=== PATIENT | female | born 1990 | race Caucasian/White ===

== ENCOUNTER 2021-11-20 12:29 | Emergency (ER) | payer OTHER, SELFPAY ==
--- NOTE | ~2021-11-20 | US_ITS ---
EXAMINATION: US OB <= 14 weeks fetus DATE: 11/20/2021 16:44 INDICATION: Abdominal pain during first trimester of TECHNIQUE: Real-time pelvic ultrasound utilizing transabdominal probe was performed. The chad bennett radiologist was not present for the study. COMPARISON: None. FINDINGS: The uterus measures 10.4 x 7.7 x 5.9 cm. There is an intrauterine gestational sac. A yolk sac and fe aydee pole are identified. The crown rump length measures 1.9 cm, which correlates with an estimated ge stational age of 8 weeks and 3 days. heart motion is identified measuring 178 beats per minute (bpm) by M-mode Doppler. 1.8 x 1.4 x 1.1 cm hypoechoic likely subchorionic hematoma along the left si de of the gestational sac. The right ovary measures 3.2 x 2.8 x 1.6 cm. Massive flow with arterial waveforms identified in the r ight ovary. The left ovary is not visualized. There is no free fluid in the pelvis. IMPRESSION: 1. Single living fetus with heart rate of 178 bpm. 2. Gestational age by ultrasound of 8 weeks 3 day(s) +/- 5 day(s) with ultrasound estimated date of delivery (CONNIE) of 06/29/2022. 3. Small subchorionic hematoma. Reviewed, dictated and finalized at location H. [facility] IMPRESSION: 1. Single living fetus with heart rate of 178 bpm. 2. Gestational age by ultrasound of 8 weeks 3 day(s) +/- 5 day(s) with ultraso und estimated date of delivery (CONNIE) of 06/29/2022. 3. Small subchorionic hematoma.
[2021-11-20 12:45] VITALS: BP 107/56; PULSE 95; RESP 16; TEMP 36.9; O2SAT 97
--- NOTE | 2021-11-20 15:43 | ED.GENADULT ---
HPI - General Adult General Chief complaint: Abdominal Pain Stated complaint: abd pain, 9wks preg Time Seen by Provider: 11/20/21 14:05 Source: patient Mode of arrival: ambulatory Limitations: no limitations History of Present Illness HPI narrative: Patient presents for evaluation of abdominal pain. She indicates she is currently , about 9 weeks gestation. She took a home test on 09/21 that was positive. She had a repeat test at [facility] shortly thereafter which was positive. She has not had an ultrasound during this . . She states she is establishing care with Dr Odonnell but has not seen her yet. She states shortly after her positive test she began having left sided abdominal pain. Pain has been intermittent, sharp occurring on several consecutive days and then resolving. At worst pain was 7/10 in severity. She indicates she woke from sleep this morning around 0200 with a throbbing headache and pain in the right side of the abdomen/flank. Pain is a similar sensation that previously experienced on the left, sharp. She states that certain movements make her pain worse. She has experienced nausea frequently throughout this from weeks 6-9, although she does not currently have any nausea. She denies any urinary symptoms, vaginal bleeding/discharge. Her last bowel movement was four days ago and normal bowel pattern is once every other day. She thinks she is dehydrated . Her last delivery was emergency c section. She states she was told she was high risk as she had gestation diabetes. No other abdominal surgeries historically. Blood type unknown. Related Data Allergies Allergy/AdvReac Type Severity Reaction Status Date / Time No Known Allergies Allergy Verified 11/20/21 14:21 Review of Systems Review of Systems: CONSTITUTIONAL: Reports chills. Denies fever or sweats. EYES: Denies visual changes, redness, or discharge. ENT: Denies rhinorrhea, congestion, sore throat, or otalgia. CARDIOVASCULAR: Denies chest pain, palpitations, or edema. RESPIRATORY: Denies cough or dyspnea. GASTROINTESTINAL: Reports abdominal pain. Reports recent nausea, none currently. Reports decreased frequency of bowel movement. Denies vomiting and diarrhea. GENITOURINARY: Denies dysuria or hematuria. SKIN: Denies rash or itching. MUSCULOSKELETAL: Reports right lower back pain. Reports generalized body aches NEUROLOGIC:Reports headache. Denies numbness, dizziness, or weakness. PSYCHIATRIC: Denies anxiety or depression. [facility] Past Medical History Medical History (Updated 11/20/21 @ 19:17 by FLORY Duron, ) Gestational diabetes Surgical History Surgical History History of delivery Family History Family History Mother No pertinent past medical history Social History Social History Substance use: never Living arrangements: with family Gender identity (if verbalized by the patient): Female Sexual Orientation (if Verbalized by the Patient): Straight or Heterosexual Spiritual care concerns: No Exam Narrative: GENERAL: Well-appearing, well-nourished, and in no acute distress. HEAD: Normocephalic, atraumatic. EYES: PERRLA and EOMI. ENT: Nares clear, no rhinorrhea or epistaxis. Mucous membranes moist. Oropharynx without tonsillar hypertrophy exudate or other lesions. Bilateral TMs pearly armstrong nonbulging NECK: Supple. No adenopathy or masses. No carotid bruits or JVD CHEST: Clear to auscultation. No respiratory distress. No wheezes rales or rhonchi HEART: Regular rate and rhythm. No murmur heard. Normal peripheral pulses. ABDOMEN: Soft, nontender, nondistended, normal active bowel sounds. GENITAL: No external genital lesions. No adnexal tenderness. No cervical motion tenderness. Mode
[2021-11-20] MEDS: LACTATED RINGERS 1,000 ML 999 ML IV CONT (16:08)
[2021-11-20] MEDS: ACETAMINOPHEN 325 MG TABLET 650 MG PO (16:09)
[2021-11-20 16:14] LABS: Basophils Percent Auto 0.5 % (0.2-1.2); Eosinophils Percent Auto 0.5 % (0-4.4); Hematocrit 37.2 % (37.0-47.0); Hemoglobin 12.8 g/dL (12.0-15.0); Immature Granulocyte Absolute 0.02 K/mm3 (0.00-0.031); Immature Granulocyte Percent A 0.5 % (0-0.5); Lymphocytes Absolute Auto 0.37 K/mm3 (0.9-3.2); Lymphocytes Percent Auto 9.4 % (18.3-44.2); Mean Corpuscular HGB Conc 34.4 g/dl (32-36); Mean Corpuscular Hemoglobin 31.3 pg (26-34); Mean Platelet Volume 10.3 fl (7.4-10.4); Monocytes Absolute Auto 0.6 K/mm3 (0.1-0.6); Monocytes Percent Auto 15.9 % (2.6-8.5); Neutrophils Absolute Auto 2.9 K/mm3 (1.3-6.7); Neutrophils Percent Auto 73.2 % (45.5-73.1); Platelet Count Result 249 k/mm3 (150-375); Red Blood Count 4.09 M/mm3 (4.2-5.4); Red Cell Distribution Width 12.2 % (11.5-14.5)
[2021-11-20 16:22] LABS: Add Urine Microscopic? YES; Appearance Urine Clear (Clear); Bacteria Urine 1+ /hpf; Bilirubin Urine Negative (Negative); Blood Urine Negative (Negative); Calcium Oxalate Crystals Urine Present /hpf; Color Urine Yellow (Yellow); Glucose Urine UA Negative (Negative); Ketones Urine 2+ mg/dL (Negative); Leukocyte Esterase Ur Negative LEU/UL (Negative); Mucus Urine Heavy /lpf; Nitrate Urine Negative (Negative); Protein Urine Negative (Negative); RBC Urine 0-2 /hpf (0-2); Specific Grav Ur 1.021 (1.001-1.035); Squamous Epithelial Cell Urine Many /hpf (Few); WBC Urine 0-3 /hpf
[2021-11-20 16:59] VITALS: BP 115/71; PULSE 93; RESP 21; O2SAT 97
[2021-11-20 17:18] LABS: Alanine Aminotransferase 33 U/L (4-35); Albumin Level 3.6 g/dL (3.5-5.1); Alkaline Phosphatase 51 U/L (38-126); Anion Gap 9 mmol/L (8-16); Aspartate Amino Transferase 39 U/L (14-36); Bilirubin,Total 0.5 mg/dL (0.2-1.3); Blood Urea Nitrogen 5 mg/dL (7-17); Calcium 8.7 mg/dL (8.4-10.2); Carbon Dioxide 21 mmol/L (22-30); Chloride 100 mmol/L (98-107); Estimated CRCL calculation 193 ml/min; Estimated Glomerular Filt Rate > 60; Glucose 93 mg/dL (65-110); Lipase 35 U/L (23-300); Potassium 4.1 mmol/L (3.4-5.0); Sodium 130 mmol/L (137-145)
[2021-11-20 20:00] VITALS: BP 111/7; PULSE 84; RESP 16; O2SAT 99
[2021-11-21 17:04] LABS: SARS-CoV-2 RNA PCR Positive
== END 2021-11-20 20:00 | disposition home or self-care (01) ==
PROVIDERS: Emergency Provider Nurse Practitioner
DX: O98.511 Other viral diseases complicating pregnancy, first trimester (principal); U07.1 COVID-19; O26.891 Other specified pregnancy related conditions, first trimester; R10.9 Unspecified abdominal pain; Z3A.08 8 weeks gestation of pregnancy
CPT/HCPCS: 36415; 76801; 80053; 81001; 83690; 84702; 85025; 86900; 86901; 87070; 87491; 87591; 87804; 87808; 96360; 99284; A9270; C9803; J7120; U0003; U0005

== ENCOUNTER 2021-12-25 11:48 | Emergency (ER) | payer BC, OTHER, SELFPAY ==
[2021-12-25 11:55] VITALS: BP 119/73; PULSE 78; RESP 16; TEMP 36.4; O2SAT 100
--- NOTE | 2021-12-25 12:54 | ED.GENADULT ---
HPI - General Adult General Chief complaint: Urogenital-Female Stated complaint: pos uti Source: patient Mode of arrival: ambulatory Limitations: no limitations History of Present Illness HPI narrative: Pt presents for evaluation and treatment of urinary symptoms since yesterday. Symptoms include urinary urgency, hesitancy, decreased output and an uncomfortable feeling without overt dysuria. No fever, chills, nausea, vomiting, abdominal pain or back pain. She states she had a miscarriage on 12/02/21. She has some dark brown drainage following the miscarriage which has been decreasing since that time. . Surgical history positive for c section. No additional complaints or concerns. Related Data Allergies Allergy/AdvReac Type Severity Reaction Status Date / Time No Known Allergies Allergy Verified 12/25/21 11:54 Review of Systems Review of Systems: CONSTITUTIONAL: Denies fever, chills, or sweats. EYES: Denies visual changes, redness, or discharge. ENT: Denies rhinorrhea, congestion, sore throat, or otalgia. CARDIOVASCULAR: Denies chest pain, palpitations, or edema. RESPIRATORY: Denies cough or dyspnea. GASTROINTESTINAL: Denies abdominal pain, nausea, vomiting, or diarrhea. GENITOURINARY: Reports urinary hesitancy, urgency, decreased output and uncomfortable feeling . Reports brown vaginal discharge following her recent miscarriage. SKIN: Denies rash or itching. MUSCULOSKELETAL: Denies back pain, joint pain, or myalgia. NEUROLOGIC: Denies headache, numbness, dizziness, or weakness. PSYCHIATRIC: Denies anxiety or depression. [facility] Past Medical History Medical History (Updated 12/25/21 @ 12:55 by FLORY Duron, ) Gestational diabetes Surgical History Surgical History History of delivery Family History Family History Mother No pertinent past medical history Diabetes mellitus Hypertension Social History Social History Smoking status: Never smoker Alcohol intake: never Substance use: never Gender identity (if verbalized by the patient): Female Sexual Orientation (if Verbalized by the Patient): Straight or Heterosexual Spiritual care concerns: No Exam Narrative: GENERAL: Well-appearing, well-nourished, and in no acute distress. HEAD: Normocephalic, atraumatic. EYES: PERRLA and EOMI. ENT: Nares clear, no rhinorrhea or epistaxis. Mucous membranes moist. Oropharynx without tonsillar hypertrophy exudate or other lesions. Bilateral TMs pearly armstrong nonbulging NECK: Supple. No adenopathy or masses. No carotid bruits or JVD CHEST: Clear to auscultation. No respiratory distress. No wheezes rales or rhonchi HEART: Regular rate and rhythm. No murmur heard. Normal peripheral pulses. ABDOMEN: Soft, nondistended, normal active bowel sounds. No abdominal or pelvic tenderness. No CVA tenderness. EXTREMITIES: Normal range of motion. No edema. SKIN: Warm, dry, no rash. NEURO: No focal deficits. Alert and oriented x3. PSYCH: Normal mood and affect. Course Course Emergency Course: This is a 31-year-old female who presented with complaints of urinary symptoms since yesterday. Urine was nitrate positive. Consistent with UTI. She did have a recent miscarriage but has no abdominal or pelvic pain to suggest retained products of conception. She was advised to follow up outpatient for further evaluation and treatment and return for worsening symptoms. Pt in agreement with plan of care. Level of Care: Express Care Visit Vital Signs Vital signs: Vital Signs Temperature 36.4 C 12/25/21 11:55 Pulse Rate 78 12/25/21 11:55 Respiratory Rate 16 12/25/21 11:55 Blood Pressure 119/73 12/25/21 11:55 Pulse Oximetry 100 12/25/21 11:55 Temperature 36.4 C 12/25/21 11:55 Pulse Rate 78 12/25/21 11:55
== END 2021-12-25 13:25 | disposition home or self-care (01) ==
PROVIDERS: Emergency Provider Nurse Practitioner; PCP Nurse Practitioner Adult Health
DX: N30.00 Acute cystitis without hematuria (principal)
CPT/HCPCS: 81003; 87077; 87086; 87186; 99213; G0463

== ENCOUNTER 2022-05-13 16:35 | Emergency (ER) | payer BC, OTHER, SELFPAY ==
[2022-05-13 16:45] VITALS: BP 113/67; PULSE 68; RESP 16; TEMP 36.9; O2SAT 100
--- NOTE | 2022-05-13 17:00 | ED.URI ---
HPI - URI/Sore Throat General Chief Complaint: Upper Respiratory Infection Stated Complaint: shortness of breath, allergies Time Seen by Provider: 05/13/22 16:52 Source: patient Mode of arrival: ambulatory Limitations: no limitations History of Present Illness HPI Narrative: Patient presents today complaining of a 2-day history of severe coughing episodes that lead to posttussive vomiting and shortness of breath. Cough is productive. Patient believes that this is due to her seasonal allergies, which occurs yearly. She has been putting off receiving an albuterol inhaler from her doctor, but believes she needs 1 now, but her doctor is now closed for the weekend. Associated symptoms include mild rhinorrhea, but denies any additional symptoms. She is not currently on an antihistamine for her allergies. Related Data Allergies Allergy/AdvReac Type Severity Reaction Status Date / Time No Known Allergies Allergy Verified 05/13/22 16:48 Review of Systems Review of Systems: CONSTITUTIONAL: Denies body aches, fever, chills, or sweats. EYES: Denies visual changes, redness, or discharge. ENT: Denies rhinorrhea, congestion, sore throat, or otalgia. CARDIOVASCULAR: Denies chest pain, palpitations, or edema. RESPIRATORY:+ Cough, posttussive vomiting, shortness of breath GASTROINTESTINAL: Denies abdominal pain, nausea, or diarrhea. GENITOURINARY: Denies dysuria or hematuria. SKIN: Denies rash, itching, or wounds. MUSCULOSKELETAL: Denies back pain, joint pain, or myalgia. NEUROLOGIC: Denies headache, numbness, tingling, or weakness. PSYCH: Denies depression or anxiety. [facility] Past Medical History Medical History Gestational diabetes Surgical History Surgical History History of delivery Family History Family History Mother No pertinent past medical history Diabetes mellitus Hypertension Social History Social History Smoking status: Never smoker Alcohol intake: never Substance use: never Gender identity (if verbalized by the patient): Female Sexual Orientation (if Verbalized by the Patient): Straight or Heterosexual Spiritual care concerns: No Comments At time of signature, I have reviewed and agree with nursing past medical, surgical, social and family history unless otherwise noted. Please see nursing chart for further information. There is no relevant family history pertinent to the presenting complaint Exam Narrative: GENERAL: Well-appearing, well-nourished, and in no acute distress. HEAD: Normocephalic, atraumatic. EYES: EOMI. No redness or drainage. Conjunctivae normal. ENT: Mucous membranes pink and moist. Nares clear. No rhinorrhea. NECK: Normal AROM. Supple. No lymphadenopathy. CHEST: No respiratory distress. Clear to auscultation. Harsh cough. Deep breath elicits coughing episode. HEART: Regular rate and rhythm. No murmur appreciated. Normal peripheral pulses. EXTREMITIES: Normal range of motion. No edema. SKIN: Warm, dry, no rash. Capillary refill normal. Normal skin turgor. NEURO: No focal deficits. Alert and oriented x3. Gait steady. PSYCH: Normal affect. No signs of depression or anxiety. Course Course Level of Care: Express Care Visit Vital Signs Vital signs: Vital Signs Temperature 98.4 F 05/13/22 16:45 Pulse Rate 68 05/13/22 16:45 Respiratory Rate 16 05/13/22 16:45 Blood Pressure 113/67 05/13/22 16:45 Pulse Oximetry 100 05/13/22 16:45 Temperature 98.4 F 05/13/22 16:45 Pulse Rate 68 05/13/22 16:45 Respiratory Rate 16 05/13/22 16:45 Blood Pressure 113/67 05/13/22 16:45 Pulse Oximetry 100 05/13/22 16:45 Reviewed MDM - URI/Sore Throat Differential Diagnosis Differential diagnosis: Likel
== END 2022-05-13 17:07 | disposition home or self-care (01) ==
PROVIDERS: Emergency Provider Nurse Practitioner; PCP Nurse Practitioner Adult Health
DX: J40 Bronchitis, not specified as acute or chronic (principal); J30.2 Other seasonal allergic rhinitis
CPT/HCPCS: 99213; G0463

== ENCOUNTER 2022-10-17 09:49 | Outpatient (CLI) | payer BC, OTHER, SELFPAY ==
[2022-10-17 11:42] LABS: Basophils Percent Auto 0.2 % (0.2-1.2); Eosinophils Absolute Auto 0.3 K/mm3 (0-0.3); Eosinophils Percent Auto 3.8 % (0-4.4); Hematocrit 39.1 % (37.0-47.0); Hemoglobin 13.1 g/dL (12.0-15.0); Immature Granulocyte Absolute 0.04 K/mm3 (0.00-0.031); Immature Granulocyte Percent A 0.5 % (0-0.5); Lymphocytes Absolute Auto 2.05 K/mm3 (0.9-3.2); Mean Corpuscular HGB Conc 33.5 g/dl (32-36); Mean Corpuscular Hemoglobin 30.3 pg (26-34); Mean Corpuscular Volume 90.3 fl (80-100); Mean Platelet Volume 10.7 fl (7.4-10.4); Monocytes Absolute Auto 0.4 K/mm3 (0.1-0.6); Monocytes Percent Auto 4.3 % (2.6-8.5); Neutrophils Absolute Auto 5.4 K/mm3 (1.3-6.7); Neutrophils Percent Auto 66.2 % (45.5-73.1); Platelet Count Result 263 k/mm3 (150-375); Red Blood Count 4.33 M/mm3 (4.2-5.4); Red Cell Distribution Width 12.1 % (11.5-14.5); White Blood Count 8.2 K/mm3 (4.5-10.0)
[2022-10-17 11:51] LABS: Glucose 1 Hour PP 50gm Dose 218 mg/dL
[2022-10-17 12:28] LABS: HIV 1/2 Ab P24 Ag Result Negative (Negative)
[2022-10-17 12:46] LABS: Hepatitis B Surface Antigen Negative (Negative); Rubella IgG Antibody 15.5 IU/ML
[2022-10-18 14:47] LABS: Rapid Plasma Reagin Non-Reactive (NonReactive)
[2022-10-26 02:05] LABS: SMA 2.0 RISK VARIANT NOT DETECTED
[2022-10-26 13:42] LABS: CF Result NEGATIVE (NEGATIVE)
[2022-11-16 15:06] LABS: SMA Results Received Yes
== END 2022-10-17 09:50 | disposition home or self-care (01) ==
PROVIDERS: PCP Nurse Practitioner Adult Health; Visit Provider Obstetrics & Gynecology
DX: N94.89 Other specified conditions associated with female genital organs and menstrual cycle (principal); E66.9 Obesity, unspecified
CPT/HCPCS: 36415; 81220; 81329; 82947; 84702; 85025; 86592; 86644; 86703; 86747; 86762; 86787; 86850; 86900; 86901; 87086; 87340; G0432

== ENCOUNTER 2022-10-26 09:47 | Outpatient (CLI) | payer BC, OTHER, SELFPAY ==
[2022-10-26 10:45] LABS: Hemoglobin A1C 5.1 % (<5.7)
== END 2022-10-26 09:48 | disposition home or self-care (01) ==
LOC: ANHLAB 09:49
PROVIDERS: PCP Nurse Practitioner Adult Health; Visit Provider Obstetrics & Gynecology
DX: O24.419 Gestational diabetes mellitus in pregnancy, unspecified control (principal); Z3A.00 Weeks of gestation of pregnancy not specified
CPT/HCPCS: 36415; 83036

== ENCOUNTER 2023-03-07 09:41 | Outpatient (CLI) | payer BC, OTHER, SELFPAY ==
[2023-03-07 10:07] LABS: Basophils Absolute Auto 0.1 K/mm3 (0.0-0.1); Basophils Percent Auto 0.6 % (0.2-1.2); Eosinophils Absolute Auto 0.2 K/mm3 (0-0.3); Eosinophils Percent Auto 2.3 % (0-4.4); Hematocrit 35.7 % (37.0-47.0); Hemoglobin 11.6 g/dL (12.0-15.0); Immature Granulocyte Absolute 0.06 K/mm3 (0.00-0.031); Immature Granulocyte Percent A 0.7 % (0-0.5); Lymphocytes Absolute Auto 2.12 K/mm3 (0.9-3.2); Lymphocytes Percent Auto 24.8 % (18.3-44.2); Mean Corpuscular HGB Conc 32.5 g/dl (32-36); Mean Corpuscular Hemoglobin 30.4 pg (26-34); Mean Corpuscular Volume 93.7 fl (80-100); Mean Platelet Volume 10.4 fl (7.4-10.4); Monocytes Absolute Auto 0.6 K/mm3 (0.1-0.6); Monocytes Percent Auto 6.7 % (2.6-8.5); Neutrophils Absolute Auto 5.5 K/mm3 (1.3-6.7); Neutrophils Percent Auto 64.9 % (45.5-73.1); Platelet Count Result 246 k/mm3 (150-375); Red Blood Count 3.81 M/mm3 (4.2-5.4); Red Cell Distribution Width 12.4 % (11.5-14.5); White Blood Count 8.5 K/mm3 (4.5-10.0)
[2023-03-07 10:59] LABS: HIV 1/2 Ab P24 Ag Result Negative (Negative)
== END 2023-03-07 09:42 | disposition home or self-care (01) ==
PROVIDERS: Visit Provider Obstetrics & Gynecology
DX: Z34.90 Encounter for supervision of normal pregnancy, unspecified, unspecified trimester (principal); Z3A.00 Weeks of gestation of pregnancy not specified
CPT/HCPCS: 36415; 85025; 86703; G0432

== ENCOUNTER 2023-03-19 13:04 | Observation (INO) | payer BC, OTHER, SELFPAY ==
[2023-03-19] VITALS (8 sets, daily range): BP systolic 104–126; BP diastolic 65–81; PULSE 65–81
--- NOTE | ~2023-03-19 | US_ITS ---
EXAMINATION: US OB limited w BPP DATE: 03/19/2023 16:35 INDICATION: BPP and MOLLY TECHNIQUE: Real-time ultrasound of the pelvis was performed. COMPARISON: 03/13/2023. FINDINGS: There is a single living fetus in vertex presentation, longitudinal lie. The placenta is posterior. heart rate is 130 beats per minute (bpm). The amniotic fluid index is 14.5 cm (5th to 95th perc entile is 8.6 cm to 24.2 cm). Biophysical profile performed by the technologist: breathing (30 sec sustained breathing in 30 minutes): 2 out of 2 movement (3 gross body movements in 30 minutes: 2 out of 2 tone (one episode of nhpdpyg-sgijfshoa-jflhxva limb movement): 2 out of 2 Amniotic fluid pocket (2 cm): 2 out of 2 Total score: 8 out of 8 IMPRESSION: 1. Single living fetus in vertex presentation with heart rate of 130 bpm. 2. Biophysical profile 8 out of 8. 3. Normal MOLLY of 14.5 cm Reviewed, dictated and finalized at location K. IMPRESSION: 1. Single living fetus in vertex presentation with heart rate of 130 bpm . 2. Biophysical profile 8 out of 8. 3. Normal MOLLY of 14.5 cm
--- NOTE | 2023-03-19 13:20 | OBADM ---
This patient, Jane Barrientos, admitted to the OB room OB Post 115 for observation. Patient/family oriented to hospital policies and general routines including ID bracelet, bed and alarms, visiting hours, pain management, procedures, bathroom and other care routines, personal items, smoking policy, room service/diet, and visiting hours. Patient/Family are encouraged to report perceived risks to care and to ask questions if they do not understand what they are told or what they should do.
[2023-03-19 14:08] LABS: Appearance Urine Cloudy (Clear); Bacteria Urine 1+ /hpf; Bilirubin Urine Negative (Negative); Blood Urine Negative (Negative); Color Urine Yellow (Yellow); Glucose Urine UA Negative (Negative); Ketones Urine Negative (Negative); Leukocyte Esterase Ur 2+ LEU/UL (NEGATIVE); Nitrate Urine Negative (Negative); Non Pathogenic Casts 0-2; Protein Urine Negative (Negative); RBC Urine 0-2 /hpf (0-2); Squamous Epithelial Cell Urine Moderate /hpf (Few); WBC Urine 51-100 /hpf (0-3)
[2023-03-19 14:16] LABS: Add Urine Microscopic? YES
--- NOTE | 2023-04-05 10:27 | P.PNOB_ITS ---
OB - Triage/Final Diagnosis Visit Information Comments/Additional reasons for admission: I have assessed the risk for this patient, Jane Barrientos, and determined that she would benefit from observation care. Evaluation Laboratory results: Laboratory Tests 03/19/23 13:56 Urine Color Yellow Urine Appearance Cloudy H Urine pH 7.0 Ur Specific [place] 1.020 Urine Protein Negative Urine Glucose (UA) Negative Urine Ketones Negative Ur Blood (Man) Negative Urine Nitrate Negative Urine Bilirubin Negative Urine Urobilinogen 1.0 Ur Leukocyte Esterase 2+ H Urine RBC 0-2 Urine WBC 51-100 Ur Squamous Epith Cells Moderate H Urine Bacteria 1+ H Urine Casts 0-2 Final Diagnosis (1) Threatened labor, antepartum: Code(s): O47.00 - False labor before 37 completed weeks of gestation, unspecified trimester Status: Acute (2) Urinary tract infection: Qualifiers: Hematuria presence: without hematuria Urinary tract infection type: acute cystitis Qualified Code(s): N30.00 - Acute cystitis without hematuria Code(s): N39.0 - Urinary tract infection, site not specified Status: Inactive
== END 2023-03-19 17:09 | disposition home or self-care (01) ==
PROVIDERS: Admitting Provider Obstetrics & Gynecology; Visit Provider Obstetrics & Gynecology
DX: O47.03 False labor before 37 completed weeks of gestation, third trimester (principal); O99.891 Other specified diseases and conditions complicating pregnancy; N30.00 Acute cystitis without hematuria; Z3A.32 32 weeks gestation of pregnancy
CPT/HCPCS: 76815; 76819; 81001; 87086; G0378; G0379

== ENCOUNTER 2023-04-27 09:33 | Outpatient (RCR) | payer BC, OTHER, SELFPAY ==
[2023-03-13 12:32] VITALS: BP 116/77; PULSE 78
[2023-03-16 10:16] VITALS: BP 112/74; PULSE 80
[2023-03-23 10:17] VITALS: BP 114/72; PULSE 82
[2023-03-27 11:29] VITALS: BP 118/71; PULSE 74
[2023-03-30 12:52] VITALS: BP 115/74; PULSE 79
[2023-04-03 10:15] VITALS: BP 116/79; PULSE 84
[2023-04-03 10:30] VITALS: BP 112/70; PULSE 83
[2023-04-03 10:45] VITALS: BP 121/79; PULSE 85
[2023-04-03 10:57] VITALS: BP 116/79; PULSE 90
[2023-04-06 10:20] VITALS: BP 116/80; PULSE 88
[2023-04-10 13:55] VITALS: BP 129/81; PULSE 83
[2023-04-13 10:14] VITALS: BP 114/66; PULSE 84
[2023-04-17 10:27] VITALS: BP 128/85; PULSE 85
[2023-04-20 10:29] VITALS: BP 118/77; PULSE 80
[2023-04-21 17:17] VITALS: BP 129/85; PULSE 74
[2023-04-24 10:02] VITALS: BP 123/83; PULSE 86
--- NOTE | 2023-04-24 11:00 | PC.NURSE ---
Patient unable to stay for BPP, rescheduled for .
--- NOTE | ~2023-04-27 | US_ITS ---
EXAMINATION: US OB BPP wo non-stress DATE: 03/13/2023 11:54 INDICATION: Maternal gestational diabetes during third trimester TECHNIQUE: Real-time pelvic ultrasound was performed. The interpreting radiologist was not present fo r the study. COMPARISON: 03/06/2023 FINDINGS: There is a single living fetus in vertex presentation. The placenta is anterior. heart rate is 131 beats per minute (bpm). Biophysical profile performed by the technologist: breathing (30 sec sustained breathing in 30 minutes): 2 out of 2 movement (3 gross body movements in 30 minutes): 2 out of 2 tone (one episode of jtrvnda-oyiiatywh-ujqtnca limb movement): 2 out of 2 Amniotic fluid pocket (2 cm): 2 out of 2 Total score: 8 out of 8 IMPRESSION: 1. Single living fetus in vertex presentation with heart rate of 131 bpm. 2. Biophysical profile 8 out of 8. Reviewed, dictated and finalized at location A.
--- NOTE | ~2023-04-27 | US_ITS ---
EXAMINATION: US OB BPP wo non-stress DATE: 04/10/2023 13:51 CDT INDICATION: Gestational diabetes TECHNIQUE: Real-time transabdominal obstetric ultrasound. FINDINGS: Comparison to 04/03/2023 There is a single living fetus in vertex presentation. The placenta is anterior/fundal without place nta previa. cardiac activity and movement is noted with a heart rate of 152 beats per minute. Biophysical profile: breathin of 2 movement: 2 of 2 tone: 2 of 2 Amniotic flud pocket: 2 of 2 Total score: 8 of 8 IMPRESSION: 1. Single living intrauterine in vertex presentation. 2: Total biophysical profile score of 8/8. Reviewed, dictated and finalized at location B.
--- NOTE | ~2023-04-27 | US_ITS ---
EXAMINATION: US OB follow up w BPP DATE: 04/17/2023 10:55 INDICATION: Gestational diabetes. Third trimester. TECHNIQUE: Real-time pelvic ultrasound was performed. COMPARISON: Ultrasound 04/10/2023 FINDINGS: There is a single living fetus in vertex presentation. The placenta is anterior. heart rate is 143 beats per minute (bpm). The amniotic fluid index is 16.4 cm which is normal. The following biometric data were obtained: Biparietal diameter (BPD): 9.4 cm; head circumference (HC): 32.7 cm; abdominal circumference (AC): 32 .1 cm; femur length (FL): 7.4 cm. These measurements are discordant with high cephalic index. Estimated weight is 3062 g +/- 459 g, which correlates with the 57th percentile when 05/09/23 is used as estimated date of delivery. As single measurements, these parameters are each equal to the following estimated gestational ages: BPD: 38 weeks 0 days. HC: 37 weeks 0 days. AC: 36 weeks 0 days. FL: 38 weeks 0 days. estimated gestational age based solely on measurements from this exam is 37 weeks 2 days +/- 2 weeks 4 days. Biophysical profile performed by the technologist: breathing (30 sec sustained breathing in 30 minutes): 2 out of 2 movement (3 gross body movements in 30 minutes): 2 out of 2 tone (one episode of msfjyiq-hvrctpalg-uiluhcx limb movement): 2 out of 2 Amniotic fluid pocket (2 cm): 2 out of 2 Total score: 8 out of 8 IMPRESSION: 1. Single living fetus in vertex presentation. 2. Estimated weight is 3062 g +/- 459 g, which correlates with the 57th percentile when 3 is used as estimated date of delivery. 3. Discordant biometrics with high cephalic index. 4. Biophysical profile 8 out of 8. Reviewed, dictated and finalized at location A. IMPRESSION: 1. Single living fetus in vertex presentation. 2. Estimated weight is 3062 g +/- 459 g, which correlates with the 57th percentile when 05/09/23 is used as estimated date of delivery. 3. Discordant biometrics with high cephalic index. 4. Biophysical profile 8 out of 8.
--- NOTE | ~2023-04-27 | US_ITS ---
EXAMINATION: US OB BPP wo non-stress DATE: 04/03/2023 11:21 CDT INDICATION: Gestational diabetes TECHNIQUE: Real-time transabdominal obstetric ultrasound. FINDINGS: Comparison to 03/27/2023 There is a single living fetus in vertex presentation. The placenta is anterior without placenta pre via. cardiac activity and movement is noted with a heart rate of 122 beats per minute. Biophysical profile: breathin of 2 movement: 2 of 2 tone: 2 of 2 Amniotic flud pocket: 2 of 2 Total score: 8 of 8 IMPRESSION: 1. Single living intrauterine in vertex presentation. 2: Total biophysical profile score of 8/8. Reviewed, dictated and finalized at location B.
--- NOTE | ~2023-04-27 | US_ITS ---
EXAMINATION: US OB BPP wo non-stress DATE: 04/27/2023 10:35 INDICATION: Gestational diabetes. Third trimester. TECHNIQUE: Real-time pelvic ultrasound was performed. COMPARISON: Ultrasound 04/17/2023 FINDINGS: There is a single living fetus in vertex presentation. The placenta is anterior and fundal. he art rate is 121 beats per minute (bpm). Biophysical profile performed by the technologist: breathing (30 sec sustained breathing in 30 minutes): 2 out of 2 movement (3 gross body movements in 30 minutes): 2 out of 2 tone (one episode of fjxrshx-ilyfznqhw-uafcrik limb movement): 2 out of 2 Amniotic fluid pocket (2 cm): 2 out of 2 Total score: 8 out of 8 IMPRESSION: 1. Single living fetus in vertex presentation. 2. Biophysical profile 8 out of 8. Reviewed, dictated and finalized at location A.
--- NOTE | ~2023-04-27 | US_ITS ---
EXAMINATION: US OB BPP wo non-stress DATE: 03/27/2023 11:23 INDICATION: Gestational diabetes. Third trimester. TECHNIQUE: Real-time pelvic ultrasound was performed. COMPARISON: Ultrasound 03/19/2023 FINDINGS: There is a single living fetus in vertex presentation. The placenta is anterior. heart rate is 134 beats per minute (bpm). Biophysical profile performed by the technologist: breathing (30 sec sustained breathing in 30 minutes): 2 out of 2 movement (3 gross body movements in 30 minutes): 2 out of 2 tone (one episode of tqudhxp-xwbhossjn-sccesqo limb movement): 2 out of 2 Amniotic fluid pocket (2 cm): 2 out of 2 Total score: 8 out of 8 IMPRESSION: 1. Single living fetus in vertex presentation. 2. Biophysical profile 8 out of 8. Reviewed, dictated and finalized at location A.
[2023-04-27 10:41] VITALS: BP 123/80; PULSE 74
== END 2023-06-11 23:59 | disposition home or self-care (01) ==
LOC: ANHOBOP 09:33
PROVIDERS: Visit Provider Obstetrics & Gynecology
DX: O24.419 Gestational diabetes mellitus in pregnancy, unspecified control (principal); Z3A.31 31 weeks gestation of pregnancy; Z3A.32 32 weeks gestation of pregnancy; Z3A.33 33 weeks gestation of pregnancy; Z3A.34 34 weeks gestation of pregnancy; Z3A.35 35 weeks gestation of pregnancy; Z3A.36 36 weeks gestation of pregnancy; O36.8130 Decreased fetal movements, third trimester, not applicable or unspecified; Z3A.37 37 weeks gestation of pregnancy; Z3A.38 38 weeks gestation of pregnancy
CPT/HCPCS: 59025; 76816; 76819

== ENCOUNTER 2023-05-01 01:54 | Inpatient (IN) | payer BC, OTHER, SELFPAY ==
[2023-05-01] VITALS (67 sets, daily range): BP systolic 97–139; BP diastolic 66–95; PULSE 56–116; RESP 13–18; TEMP 36.4–37; O2SAT 94–99; BMI 31.3
--- NOTE | 2023-05-01 01:54 | LDADM ---
This patient, Jane Barrientos, was admitted to Labor/Delivery/Recovery 120 on 05/01/23 at 01:54. Plans for labor, pain management and were discussed with patient. Patient/family oriented to hospital policies and general routines including ID bracelet, bed and alarms, visiting hours, pain management, procedures, bathroom and other care routines, personal items, smoking policy, room service/diet and guest tray routines, infant security routines, and visiting hours. Patient/Family are encouraged to report perceived risks to care and to ask questions if they do not understand what they are told or what they should do. See OBIX for further documentation.
--- NOTE | 2023-05-01 02:21 | PC.NURSE ---
Notified Dr. Harmon of patient arrival to OB unit with complaint of SROM. ROM plus positive and gross ROM noted. Clear fluid noted. complicated by GDM and HSV. Patient states she has not taken blood sugar in a few days and is not presently taking valtrex. FHT appropriate for gestational age. Uterine irritability noted with TOCO and rare contraction. Orders given to prep patient for section.
--- NOTE | 2023-05-01 02:36 | WPDANESEPP ---
Anes - Eval Pre Procedure Procedure: Operation Date: 05/04/23 07:30 Proposed Procedures p Repeat Section with Tubal Ligation - Clarence Rodrigues MD Date/Time: 05/01/23 02:36 Pre Op Diagnosis: SROM Patient Data Age: 32 Gender: F Height: Weight: Last Vital Signs Pulse 79 05/01/23 02:31 BP 133/93 H 05/01/23 02:31 Allergies Allergy/AdvReac Type Severity Reaction Status Date / Time No Known Allergies Allergy Verified 04/25/23 09:27 Home Medications Medication Instructions Recorded Confirmed Type albuterol sulfate 90 mcg/actuation 2 inh inhalation Q4H PRN shortness 10/26/22 04/27/23 Rx aerosol inhaler of breath or wheezing #8.5 grams acyclovir 400 mg tablet 400 mg PO BID #60 tabs 04/03/23 04/27/23 Rx Patient hx anesthesia problems: none Family hx anesthesia problems: none Results Review: All pre-operative results and documents have been reviewed as part of the pre-operative evaluation. [facility] Past Medical History Medical History Admission for removal of tissue sanitation lead of breast Gestational diabetes Obesity Suppression of menses Surgical History Surgical History History of delivery Family History Family History Mother No pertinent past medical history Diabetes mellitus Other Hypertension Father Throat cancer Social History Social History Smoking status: Never smoker Alcohol intake: never Substance use: never Lack of Transportation: No Lack of Food: Never True Current Housing: I Have Housing Concerned About Future Housing: No Difficulty Paying Gas/Electric Bills: No Difficulty Paying for Meds: No Currently Unemployed: No Education: Trade/Vocational Certificate Difficulty w/ Childcare or Family Care: No Living arrangements: with family Occupation/Education: unemployed Gender identity (if verbalized by the patient): Female Sexual Orientation (if Verbalized by the Patient): Straight or Heterosexual Spiritual care concerns: No Exam Day of Procedure 05/01/23 02:36 Patient weight: obese Heart: regular rate and rhythm Lungs: clear to auscultation Airway: Mallampati scale Neurological: alert and oriented
[2023-05-01] MEDS: LACTATED RINGERS 1,000 ML 125 ML IV CONT (02:50)
[2023-05-01 03:05] LABS: Basophils Absolute Auto 0.1 K/mm3 (0.0-0.1); Basophils Percent Auto 0.5 % (0.2-1.2); Eosinophils Absolute Auto 0.1 K/mm3 (0-0.3); Eosinophils Percent Auto 1.3 % (0-4.4); Hematocrit 35.9 % (37.0-47.0); Hemoglobin 11.9 g/dL (12.0-15.0); Immature Granulocyte Absolute 0.07 K/mm3 (0.00-0.031); Immature Granulocyte Percent A 0.6 % (0-0.5); Lymphocytes Absolute Auto 4.14 K/mm3 (0.9-3.2); Lymphocytes Percent Auto 37.6 % (18.3-44.2); Mean Corpuscular HGB Conc 33.1 g/dl (32-36); Mean Corpuscular Hemoglobin 31.4 pg (26-34); Mean Corpuscular Volume 94.7 fl (80-100); Mean Platelet Volume 11.6 fl (7.4-10.4); Monocytes Absolute Auto 0.7 K/mm3 (0.1-0.6); Monocytes Percent Auto 6.3 % (2.6-8.5); Neutrophils Absolute Auto 5.9 K/mm3 (1.3-6.7); Neutrophils Percent Auto 53.7 % (45.5-73.1); Platelet Count Result 211 k/mm3 (150-375); Red Blood Count 3.79 M/mm3 (4.2-5.4); Red Cell Distribution Width 13.2 % (11.5-14.5)
--- NOTE | 2023-05-01 03:19 | PM.IMHP ---
H&P: HPI History of Present Illness Date/Time: 05/01/23 03:19 Chief Complaint: Leaking of fluid Narrative: She is a Para1 at 38 6/7 by LMP with an edc 05/09. She presented with SROM clear at 0120 confirmed. Cervical exam 3cm. Irregular contractions. PNC significant for gestational diabetes, notes state controlled. Also prior she plans on repeat and she has satisfied parity and continues to desire permanent sterilization. There is also a h/o hsv she did not do suppression medication. She denies any herpes lesions or prodromal symptoms. Light neg on initial assessment on L and D. Labs reviewed. GBS neg. Review of Systems Review of Systems: All systems reviewed & are unremarkable except as noted in HPI and below Constitutional: Constitutional: Reports no additional constitutional complaints and Denies headache(s) Eyes: Eyes: Denies spots in vision ENT: Reports system reviewed and no additional complaints, except as documented and Denies headache(s) Cardiovascular: Cardiovascular: Denies chest pain and Denies dyspnea Respiratory: Respiratory: Denies dyspnea Gastrointestinal: Gastrointestinal: Reports no additional gastrointestinal complaints Genitourinary: Genitourinary: Reports amenorrhea Musculoskeletal: Musculoskeletal: Reports no additional musculoskeletal complaints Integumentary/Breasts: Skin/Breast: Reports system reviewed and no additional complaints, except as docu Neurologic: Denies headache(s) Psychiatric: Psychiatric: Reports no additional psychiatric complaints [facility] Past Medical History Medical History Admission for removal of tissue piece maker of breast Gestational diabetes Obesity Suppression of menses Surgical History Surgical History History of delivery Family History Family History Mother No pertinent past medical history Diabetes mellitus Other Hypertension Father Throat cancer Social History Social History Smoking status: Never smoker Alcohol intake: never Substance use: never Lack of Transportation: No Lack of Food: Never True Current Housing: I Have Housing Concerned About Future Housing: No Difficulty Paying Gas/Electric Bills: No Difficulty Paying for Meds: No Currently Unemployed: No Education: Decline to Answer Difficulty w/ Childcare or Family Care: No Living arrangements: with family Occupation/Education: unemployed Gender identity (if verbalized by the patient): Female Sexual Orientation (if Verbalized by the Patient): Straight or Heterosexual Spiritual care concerns: No Meds Home Medications and Allergies Home Medications Medication Instructions Recorded Confirmed Type albuterol sulfate 90 mcg/actuation 2 inh inhalation Q4H PRN shortness 10/26/22 04/27/23 Rx aerosol inhaler of breath or wheezing #8.5 grams acyclovir 400 mg tablet 400 mg PO BID #60 tabs 04/03/23 04/27/23 Rx Allergies Allergy/AdvReac Type Severity Reaction Status Date / Time No Known Allergies Allergy Verified 04/25/23 09:27 Vital Signs Vital Signs - 24 hr 05/01/23 02:55 05/01/23 02:31 05/01/23 02:04 Temperature 98.6 F Pulse Rate 79 Respiratory Rate 16 Blood Pressure 133/93 H Oxygen Delivery Room Air Exam Const: General: no acute distress Eyes: General: appearance normal, both eyes and all related structures Resp: Effort & Inspection: normal respiratory effort Cardio: Rate: regular rate GI: Inspection: normal to inspection Other: Gravid no fundal tenderness no right upper quadrant pain Skin: General skin exam: no rashes or lesions noted Neuro: Cognition (Neuro): normal cognition Extrem: General: normal to inspection Psych: Mental Status: mental status
[2023-05-01 03:22] LABS: Alanine Aminotransferase 17 U/L (6-35); Albumin Level 3.5 g/dL (3.5-5.1); Alkaline Phosphatase 125 U/L (38-126); Anion Gap 6 mmol/L (8-16); Aspartate Amino Transferase 27 U/L (14-36); Bilirubin,Total 0.4 mg/dL (0.2-1.3); Blood Urea Nitrogen 17 mg/dL (7-17); Calcium 8.4 mg/dL (8.4-10.2); Carbon Dioxide 23 mmol/L (22-30); Chloride 105 mmol/L (98-107); Estimated CRCL calculation 120 ml/min; Estimated Glomerular Filt Rate > 60; Glucose 91 mg/dL (65-110); Potassium 4.1 mmol/L (3.4-5.0); Sodium 134 mmol/L (137-145); Uric Acid 6.4 mg/dL (2.5-7.5)
[2023-05-01] MEDS: AZITHROMYCIN 500 MG/NS 250 ML 500 MG/250 ML BAG 250 MG IVPB (03:24)
[2023-05-01] MEDS: ceFAZolin 2 GM/D5W 50 ML 2 GM/50 ML BAG IVPB (03:24)
--- NOTE | 2023-05-01 03:28 | WPDHPUPDATE1 ---
History and Physical Update Update Date/Time: 05/01/23 03:28 History and Physical has been reviewed, including an updated exam of the patient. There are NO changes in the patient's condition. Risks, benefits, and alternatives have been discussed and questions answered. Patient agrees to proceed with procedure.
--- NOTE | 2023-05-01 03:28 | W.PM.PROC2 ---
Procedure Note - Detailed Date of Procedure 05/01/23 Pre-op Diagnosis Rupture of Membranes Prior section Desires sterilization Post-op Diagnosis Same Procedure Performed 1. Repeat low transverse section. 2. Bilateral tubal ligation Surgeon Anderson Harmon MD Anesthesia Spinal Indications Confirmed rupture of membranes at term with prior section. Findings male infant, loose nuchal cord, 6lb 15oz, apgars 8,9 Normal uterus and ovaries, normal appearing fallopian tubes, engorged broad ligament vessels Description of Procedure After informed consent, risks and benefits of the procedure was discussed with the patient. The patient was taken to the operating room where she was placed in the dorsal lithotomy position with leftward tilt. After the prior placed epidural anesthesia was found to be adequate, she was then prepped and draped in the usual sterile fashion. A Pfannenstiel skin incision was made with a scalpel and carried through to the underlying layer of fascia. The fascia was then nicked in the midline, extending bilaterally. The fascia was dissected off the rectus muscles bluntly and sharply, superiorly and inferiorly. The rectus muscles were in the midline, and peritoneum was identified and entered bluntly. The pelvic organs were visualized. The bladder blade was then inserted. The vesicouterine peritoneum was identified and entered sharply with Metzenbaum scissors and extended bilaterally and then the bladder flap was created digitally. The low transverse uterine incision was then made with the scalpel and extended with bilateral index fingers in a crescent-shaped fashion. The head was delivered, loose nuchal cord reduced manually and the rest of the infant was delivered. Cord around arm reduced. The nose and mouth suctioned. The cord was clamped twice and cut. The was then handed off to the awaiting pediatric staff. The placenta was then delivered manually. The uterine cavity was sponge curretted. The uterus was then exteriorized. The uterine incision was then closed with 0 vicryl in a running locked fashion. There was a small inferior laceration repaired with 0 vicryl in a running locking fashoion. Hemostasis noted. A second layer of 0 vicryl was used in an imbricating fashion for hemostasis. The posterior cul de sac was irrigated. The uterus was then returned to the abdomen. Bilateral gutters were cleared off all clots and debris. Tubal segments inspected and noted to be hemostatic. The uterine incision was noted to be hemostatic. The muscle bellies were inspected and noted to be hemostatic. The subfascial layer was noted to be hemostatic, and the fascia was closed with 0 Vicryl in a running fashion. The subcutaneous layer was then closed with 3-0 Vicryl in a subcutaneous fashion. The skin was closed with Ensorb mildred. Skin dermabond applied at incision. All instruments, needle, and lap counts were correct x3. The patient was taken to the recovery room in stable condition. Estimated Blood Loss 575 Drains No Packing No Pathology Yes (placenta and cord) Complications No immediate complications Disposition Floor [facility] Billing Surgery - Charge Forward: Surgery Billing
[2023-05-01] MEDS: OXYTOCIN 30 UNITS/NS 500 ML 30 UNITS/500 ML BAG 125 UNITS IV CONT (04:51)
[2023-05-01] MEDS: MORPHINE SULFATE INJ (*CRX) 10 MG/ML AMP 2 MG IV PUSH (05:33)
[2023-05-01] MEDS: KETOROLAC 30 MG/ML VIAL (*BKC) IV PUSH ×2 (08:07→17:00)
[2023-05-01] MEDS: LORATADINE 10 MG TABLET PO (08:07)
[2023-05-01] MEDS: KCL 20 MEQ/D5/0.45% SOD CHL 1,000 ML 125 ML IV CONT (10:20)
[2023-05-01 13:16] LABS: Rapid Plasma Reagin Non-Reactive (NonReactive)
--- NOTE | 2023-05-01 15:51 | PC.NURSE ---
[id number] Introductions were made, then consulted with patient to assess needs related to . Mother led the conversation with her?plans to feed?her infant, no history, and the?experience so far. Resources provided for inpatient and outpatient services with name written on the white board and mom/baby guide. Mother voiced understanding of information and requested assistance. Blood sugar was checked and resulted in 52mg/dl. Mother works well with her infant with encouragement and education. Encouraged understanding of the benefits of skin to skin (demonstrating unwrapping and placing upright on her chest), stimulating with massage touch, changing positions to encourage wakefulness, how to watch for early feeding cues, responsive feeding, feeding on demand (aiming for 8-12 times in 24 hours, about every 2-3 hours), milk production, building/maintaining a milk supply, duration of feeding, signs of adequate intake/output and how to record on the feeding sheet. Reviewed positioning and ear, shoulder, hip alignment, supporting the breast to facilitate a deep latch, asymmetrical latch (off-center), leading with the chin with a big, open, wide gape and body close to mother. latched optimally to the right breast in football position. Education given to mother of how to visualize suck/swallow ratios and listen for drinking at the breast. Infant was able to maintain latch without discomfort to mother. Nipple care reviewed with optimal latch and good positioning. Mother voiced understanding of skin to skin, stimulating with massage touch, responsive feedings, hand expressed colostrum, talking to infant to encourage if it has been 2 -2.5 hours since the start of the last , to call if does not latch, or if there is discomfort with . Reported to the primary RN. [id number] Pt requested assistance with latching. Mother states breastfed 20 min on the right breast without any pain and there was no nipple misshaping after infant detached from the breast. Reviewed positioning and alignment, supporting breast, off-centered (asymmetrical latch) and leading with the chin with big, open, wide gape. Infant latched optimally to the left breast in cross cradle position. Education given to mother of how to visualize suck/swallow ratios and listen for drinking at the breast. was able to maintain latch without discomfort to mother. Nipple care reviewed with optimal latch, good positioning and using clean hands when feeding her infant and touching her breast. Resources used to facilitate learning were used from the tool. Mother voiced understanding of the education shared, to call for assistance if the infant does not latch or if there is discomfort with . Reported to the primary RN.
[2023-05-01] MEDS: HYDROcodone/acetaminophen (*CRX) 5-325 MG TABLET 1 TAB PO (22:05)
[2023-05-01] MEDS: IBUPROFEN 600 MG TABLET PO (22:06)
[2023-05-02] MEDS: HYDROcodone/acetaminophen (*CRX) 5-325 MG TABLET 1 TAB PO ×4 (04:40→19:41)
[2023-05-02] MEDS: IBUPROFEN 600 MG TABLET PO ×3 (04:40→16:14)
[2023-05-02 04:45] VITALS: BP 122/81; PULSE 73; RESP 18; TEMP 36.8; O2SAT 98
[2023-05-02 06:16] LABS: Basophils Absolute Auto 0.1 K/mm3 (0.0-0.1); Basophils Percent Auto 0.3 % (0.2-1.2); Eosinophils Absolute Auto 0.1 K/mm3 (0-0.3); Eosinophils Percent Auto 0.9 % (0-4.4); Hemoglobin 9.2 g/dL (12.0-15.0); Immature Granulocyte Absolute 0.07 K/mm3 (0.00-0.031); Immature Granulocyte Percent A 0.5 % (0-0.5); Lymphocytes Absolute Auto 3.08 K/mm3 (0.9-3.2); Lymphocytes Percent Auto 21.4 % (18.3-44.2); Mean Corpuscular HGB Conc 31.7 g/dl (32-36); Mean Corpuscular Hemoglobin 31.1 pg (26-34); Mean Platelet Volume 11.6 fl (7.4-10.4); Monocytes Percent Auto 6.8 % (2.6-8.5); Neutrophils Absolute Auto 10.1 K/mm3 (1.3-6.7); Neutrophils Percent Auto 70.1 % (45.5-73.1); Platelet Count Result 171 k/mm3 (150-375); Red Blood Count 2.96 M/mm3 (4.2-5.4); Red Cell Distribution Width 13.4 % (11.5-14.5); White Blood Count 14.4 K/mm3 (4.5-10.0)
--- NOTE | 2023-05-02 08:00 | WPDANLDPN2 ---
Anes-Prog Note L&D Date/Time: 05/02/23 08:00 Neuro status: Neuro function grossly intact. Vital Signs: Last Vital Signs Temp 36.5 C 05/01/23 20:37 Pulse 75 05/01/23 20:37 Resp 18 05/01/23 20:37 BP 130/83 05/01/23 20:37 Pulse Ox 98 05/01/23 20:37 O2 Del Method Room Air 05/01/23 17:00 Pain score (VAS): 0 I/O: Intake & Output 05/01/23 05/02/23 05/02/23 23:59 07:59 15:59 Intake Total 1790 Output Total 900 Balance 890 Patient feedback: Patient satisfied with anesthetic care.
--- NOTE | 2023-05-02 08:00 | WPDANLDNPN2 ---
Anes-Prog Note L&D-Neuraxial Date/Time: 05/02/23 08:00 Patient feedback: Patient satisfied with post-operative pain management.
[2023-05-02 08:45] VITALS: BP 134/83; PULSE 81; RESP 16; TEMP 36.6; O2SAT 99
[2023-05-02] MEDS: MULTIVIT/MIN/PREN/FOL AC/IRON TABLET 1 TAB PO (10:27)
[2023-05-02] MEDS: DOCUSATE SODIUM 100 MG CAPSULE PO ×2 (10:27→16:14)
[2023-05-02] MEDS: POLYSACCHARIDE IRON COMPLEX 150 MG CAPSULE PO (16:13)
[2023-05-02 19:40] VITALS: BP 128/88; PULSE 79; RESP 16; TEMP 36.7; O2SAT 99
[2023-05-03] MEDS: HYDROcodone/acetaminophen (*CRX) 5-325 MG TABLET 1 TAB PO ×3 (01:36→12:53)
[2023-05-03] MEDS: IBUPROFEN 600 MG TABLET PO ×2 (04:24→12:53)
[2023-05-03] MEDS: MULTIVIT/MIN/PREN/FOL AC/IRON TABLET 1 TAB PO (07:47)
[2023-05-03] MEDS: DOCUSATE SODIUM 100 MG CAPSULE PO (07:47)
[2023-05-03] MEDS: POLYSACCHARIDE IRON COMPLEX 150 MG CAPSULE PO (07:47)
[2023-05-03 08:35] VITALS: BP 120/69; PULSE 64; RESP 18; TEMP 36.6; O2SAT 99
--- NOTE | 2023-05-03 13:11 | PC.NURSE ---
[id number] Purposefully rounded to assess for needs. Mother states she has difficulty keeping her awake and actively . RN visualizes a tongue that is tight and somewhat restricted with a lower frenulum. does move the tongue just slightly past the gumline on a rare occasion, however, doesn't maintain latch with good rocking motion with an appropriate suck/ swallow ratio. Infant is often gassy and needs to be burped often during a breastfeed to encourage effective . Good swallows are seen, however, with a weight loss of greater than 8% there is concern that infant is not effectively during every feed. TCB results do not require medical intervention. Mother has supplemented her with a bottle X2 related to her feeling like baby isn't getting enough . Output is adequate. Infant latched to the right breast using football and practiced on the left with cross cradle positioning with mother supporting her breast using the sandwich hold. There are appropriate swallows when is stimulated to breastfeed and only breast feeds for less than 5 minutes and burping, changing position, and stimulating with touch is need to awaken infant to get more swallows at the breast. Bilateral nipples are intact and not injured. 1307 - Dr. Asencio was called and we discussed my concerns with , weight loss and tight lower frenulum. The Primary RN was reported to and she will order a consult with Dr. Garcia. 1311 - Dr. Garcia was called and given notification of the consult.
--- NOTE | 2023-05-03 15:38 | PC.NURSE ---
Addendum entered by Thao Vogel RN 05/04/23 09:27: This breast feed was post frenulectomy. Original Note: [id number] Purposefully rounded to assess for needs. Mother and are sitting up awake and alert. Mother states the last breastfeed was successful, no pain, and infant maintained for 20 minutes without a lot of on/off, sleepiness or gas. Reinforced community resources, medication information reviewed per [facility] and when to call a provider using the resource of the mom and baby guide. Mother voiced understanding of the education shared.
--- NOTE | 2023-05-03 15:50 | PM.OBDSVD ---
DS: Admitting Diagnosis Discharge Date 05/03/2023 Admitting Diagnosis DS: Discharge Diagnosis Discharge Diagnosis (1) , delivered: Code(s): O80 - Encounter for full-term uncomplicated delivery Status: Acute OB - DS: Summary OB Procedures : None OB Procedures Intrapartum: and Tubal ligation OB Procedures: : None Peripartum Data Procedures: Procedures Operation Date: 05/01/23 03:00 Actual Procedure Side Surgeon p Section Bilateral Anderson Harmon MD Time Spent with Patient Time attestation: Total time spent providing and/or coordinating discharge services: DS: Data Data Completed and Pending Completed studies during hospitalization: Pending at discharge 05/01/23 03:49 Surgical [PTH] Routine Pending studies at discharge: Pending at discharge 05/01/23 04:10 Surgical [PTH] Routine Discharge Plan Discharge Discharging Clinician: Clarence Rodrigues Patient Disposition: Home, Self-Care Activity: may shower, no straining, no driving, follow weight bearing status and pelvic rest Diet: as tolerated Patient Instructions: Antibiotic Form Stand Alone Forms: General Discharge Information Follow-up/Referrals: Clarence Rodrigues MD [Physician] - 3 Weeks Discharge Medications: New hydrocodone-acetaminophen 5-325 mg Tablet 1 tablet PO Q3H PRN (Reason: Moderate Pain (4-6)) Qty: 20 0RF ibuprofen 600 mg Tablet 600 mg PO Q6H PRN (Reason: Cramping) Qty: 30 0RF Continued albuterol sulfate 90 mcg/actuation HFA aerosol inhaler 2 inh inhalation Q4H PRN (Reason: shortness of breath or wheezing) Qty: 8.5 1RF Patient Comments: Hasn't used during the Discontinued acyclovir 400 mg tablet 400 mg PO BID Qty: 60 0RF Date of admission: 05/01/23 01:54 Primary Care Provider: UNKNOWN,DOCTOR Admitting Provider: Clarence Rodrigues Attending physician on admission: Clarence Rodrigues Condition: Stable
[2023-05-03 16:35] VITALS: BP 132/86; PULSE 75; RESP 18; TEMP 36.8; O2SAT 99
[2023-05-03 18:48] VITALS: BP 132/86; PULSE 75; RESP 18; TEMP 36.8; O2SAT 99
[2023-05-04 11:25] VITALS: BP 107/74; PULSE 71; RESP 16; TEMP 36.8; O2SAT 100
== END 2023-05-03 17:25 | disposition home or self-care (01) | DRG 784 ==
LOC: ANHLDR 03:23 → ANHOB2 07:24
PROVIDERS: Admitting Provider Obstetrics & Gynecology; Visit Provider Obstetrics & Gynecology
DX: O34.219 Maternal care for unspecified type scar from previous cesarean delivery (principal); O98.52 Other viral diseases complicating childbirth; Z30.2 Encounter for sterilization; B00.9 Herpesviral infection, unspecified; O99.214 Obesity complicating childbirth; O69.81X0 Labor and delivery complicated by cord around neck, without compression, not applicable or unspecified; O24.429 Gestational diabetes mellitus in childbirth, unspecified control; Z3A.38 38 weeks gestation of pregnancy; Z37.0 Single live birth
CPT/HCPCS: 36415; 80053; 84112; 84550; 85025; 86592; 86850; 86900; 86901; 88302; 88307; A9270; J0456; J0690; J1885; J2270; J2274; J2405; J2590; J3480; J7120

== ENCOUNTER 2024-07-15 08:42 | Outpatient (CLI) | payer BC, MEDICAID, SELFPAY | END 2024-07-15 08:43 | disposition home or self-care (01) | PROVIDERS: PCP Nurse Practitioner Adult Health; Visit Provider Obstetrics & Gynecology | DX: N83.209 Unspecified ovarian cyst, unspecified side (principal) | CPT/HCPCS: 36415; 86850; 86900; 86901 ==

== ENCOUNTER 2024-07-15 16:08 | Outpatient (CLI) | payer BC, MEDICAID, SELFPAY ==
--- NOTE | ~2024-07-15 | XR_ITS ---
3 VIEWS LUMBAR SPINE Ordering provider: Frannie Leroy APRN History: . M54.9 - Dorsalgia, unspecified . Comparison: None. FINDINGS: VERTEBRAL BODIES: No visible fracture or subluxation. Mild levoscoliosis which may be positional. DISK SPACES: Narrowing of the disc L5-S1. SOFT TISSUES: Normal. IMPRESSION: No acute osseous abnormality lumbar spine. Degenerative disc disease at the level of L5-S1.. Reviewed, dictated and finalized at location A.
--- NOTE | ~2024-07-15 | XR_ITS ---
XR_[id number]_CR 07/15/2024 16:35 Indication: Neck pain. Procedure: 3 views cervical spine Comparison: No prior studies for comparison. Findings: Straightening of cervical lordosis. No prevertebral soft tissue swelling. Vertebral body an d disc heights are preserved. No evidence for perched facet. Mild uncinate hypertrophy at C4-5, C5-6 and C6-7. Lung apices are normal. Impression: 1: Mild cervical spondylosis. Reviewed, dictated and finalized at location B. Impression: 1: Mild cervical spondylosis.
--- NOTE | ~2024-07-15 | XR_ITS ---
XR thoracic spine 3V 07/15/2024 16:35 Indication: Back pain Procedure: 3 views of the thoracic spine Comparison: No prior studies for comparison. Findings: There is dextrocurvature of the thoracic spine. Vertebral body heights are maintained. No p araspinal soft tissue abnormality. Pedicles intact. Surrounding osseous structures are unremarkable. Impression: 1: Mild dextroscoliosis. Reviewed, dictated and finalized at location B. Impression: 1: Mild dextroscoliosis.
--- NOTE | ~2024-07-15 | XR_ITS ---
EXAM: XR pelvis 1-2V DATE: 07/15/2024 16:35 HISTORY: M54.9 - Dorsalgia, unspecified . COMPARISON: None available. FINDINGS: Normal mineralization. No fracture or dislocation. No lytic or blastic lesion. Joint space s are maintained. No erosion or periosteal change. Soft tissues within normal limits. IMPRESSION: Unremarkable pelvic radiograph findings. Reviewed, dictated and finalized at location K.
== END 2024-07-15 16:09 | disposition home or self-care (01) ==
LOC: ANHBWCIMG 16:12
PROVIDERS: PCP Nurse Practitioner Adult Health; Visit Provider Nurse Practitioner Adult Health
DX: M47.892 Other spondylosis, cervical region (principal); M51.37 Other intervertebral disc degeneration, lumbosacral region
CPT/HCPCS: 72040; 72072; 72100; 72170

== ENCOUNTER 2024-07-17 11:38 | Outpatient (CLI) | payer BC, MEDICAID, SELFPAY ==
[2024-07-17 12:10] LABS: Basophils Absolute Auto 0.1 K/mm3 (0.0-0.1); Basophils Percent Auto 0.8 % (0.2-1.2); Eosinophils Absolute Auto 0.6 K/mm3 (0-0.3); Eosinophils Percent Auto 5.8 % (0-4.4); Hematocrit 39.6 % (37.0-47.0); Immature Granulocyte Absolute 0.05 K/mm3 (0.00-0.031); Immature Granulocyte Percent A 0.5 % (0-0.5); Lymphocytes Absolute Auto 3.51 K/mm3 (0.9-3.2); Lymphocytes Percent Auto 33.7 % (18.3-44.2); Mean Corpuscular HGB Conc 32.8 g/dl (32-36); Mean Corpuscular Volume 91.5 fl (80-100); Monocytes Absolute Auto 0.6 K/mm3 (0.1-0.6); Monocytes Percent Auto 5.8 % (2.6-8.5); Neutrophils Absolute Auto 5.6 K/mm3 (1.3-6.7); Neutrophils Percent Auto 53.4 % (45.5-73.1); Platelet Count Result 384 k/mm3 (150-375); Red Blood Count 4.33 M/mm3 (4.2-5.4); Red Cell Distribution Width 12.9 % (11.5-14.5); White Blood Count 10.4 K/mm3 (4.5-10.0)
[2024-07-17 12:23] LABS: Alanine Aminotransferase 18 U/L (6-35); Albumin Level 4.6 g/dL (3.5-5.1); Alkaline Phosphatase 89 U/L (38-126); Anion Gap 14 mmol/L (4-12); Aspartate Amino Transferase 24 U/L (14-36); Bilirubin,Total 0.7 mg/dL (0.2-1.3); Blood Urea Nitrogen 14 mg/dL (7-17); Carbon Dioxide 24 mmol/L (22-30); Chloride 100 mmol/L (98-107); Estimated Glomerular Filt Rate > 60; Glucose 107 mg/dL (65-110); Sodium 138 mmol/L (137-145)
[2024-07-17 13:10] LABS: Hemoglobin A1C 5.8 % (<5.7)
[2024-07-17 13:20] LABS: Carcinoembryonic Antigen < 0.3 ng/mL (0.0-3.0)
[2024-07-18 13:58] LABS: CA 19-9 7 U/mL (<34); CA-125 10 U/mL (<35)
[2024-07-19 02:09] LABS: Triiodothyronine T3 Free 3.5 pg/mL (2.3-4.2)
== END 2024-07-17 11:39 | disposition home or self-care (01) ==
LOC: ANHLAB 11:41
PROVIDERS: PCP Nurse Practitioner Adult Health; Visit Provider Obstetrics & Gynecology
DX: R53.83 Other fatigue (principal); N83.8 Other noninflammatory disorders of ovary, fallopian tube and broad ligament
CPT/HCPCS: 36415; 80053; 82378; 83036; 84439; 84443; 84481; 85025; 86301; 86304

== ENCOUNTER 2024-07-18 01:50 | Day surgery (SDC) | payer BC, MEDICAID, SELFPAY ==
--- NOTE | 2024-07-11 13:04 | PC.NURSE ---
Report to the Outpatient Waiting Room, entrance under the green pavilion located off [facility], at time 0830_ on date _07/18/24. Planned Procedure Time: 1030_. Time changes happen often and if your time is changed the preop area will call you the afternoon before. - You and your visitor will be asked to self-screen and do not enter if you have any COVID symptoms. - A mask is optional within the hospital at this time. Patients may have clear liquids (water, carbonated beverages, clear teas, apple juice) until 3 hours prior to surgery with a maximum of 20 ounces. - No food from midnight until time of surgery - Infants may have breast milk until 4 hours before surgery, infant formula 6 hours prior to surgery. - Children will be allowed to drink immediately following surgery. If applicable, please bring a bottle or sippy cup to assist with drinking. Juice, water, soda, and popsicles are readily available. For infants on formula, please bring formula the day of surgery. Pacifiers are allowed. Take the following medications with a SIP of water the morning of surgery: NONE DO NOT STOP ANY OF YOUR OTHER PRESCRIPTION MEDICATIONS PRIOR TO SURGERY ?EXCEPT THE FOLLOWING Medications to discontinue per physician NONE Date to take last dose Please no make-up, nail portuguese, hairspray, perfume, deodorant, or body powder the day of surgery. No jewelry (including any body piercings) or valuables the day of surgery, leave them at home. Please take a shower or bath the night before, or the morning of, surgery with an antibacterial soap. Wear comfortable, loose fitting clothing. Children are encouraged to wear pajamas. - Jewelry must be removed prior to entering the operating room. Rings and piercings that are not removed may be cut off. - The hospital will not accept responsibility for valuables. - Please leave all valuables, including medications, at home the day of surgery. If you are going home after surgery, a licensed combine driver must drive you home. - NO public transportation without another adult if you receive anesthesia. - We recommend that an adult stay with you for 24 hours following discharge. - We also recommend that you do not drive, make important decision, drink alcoholic beverages, or take any drugs that were not prescribed by your health care provider for at least 24 hours after your discharge time. For Pediatric surgeries, we recommend two adults accompany the child home. Follow any additional instructions given to you from your surgeon. If you or anyone in your household have experienced Covid symptoms in the past week, please notify your surgeon or the nurse liaison at the phone number below for possible testing. Telephone instructions given to __PATIENT___and asked if any additional questions and then verbalized understanding. Patient advised to call surgeon office or pre surgery nurse liaison [phone] if any additional questions.
--- NOTE | 2024-07-16 09:23 | PM.IMHP ---
H&P: HPI History of Present Illness Date/Time: 07/16/24 09:23 33-year-old female presents for operative management of left sided pelvic pain. This has been ongoing problem for her over the past few months increasing and interfering with work and social activities. Ultrasound did reveal a 3cm ovarian cyst with 1cm solid component. Cycles have been regular and no other significant gynecologic complaints. 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 Gestational diabetes Obesity Suppression of menses Surgical History Surgical History (Reviewed 07/16/24 @ :24 by Clarence Rodrigues MD) History of delivery Family History Family History (Reviewed 07/16/24 @ :24 by Clarence Rodrigues MD) Mother No pertinent past medical history Diabetes mellitus Other Hypertension Father Throat cancer Social History Social History Smoking status: Never smoker Second hand tobacco smoke exposure: No Alcohol intake: former Substance use: never Substance use type: does not use Do You Feel Safe in your Home?: Yes Lack of Transportation: No Lack of Food: Never True Current Housing: I Have Housing Concerned About Future Housing: No Difficulty Paying Gas/Electric Bills: No Difficulty Paying for Meds: No Currently Unemployed: No Education: Decline to Answer Difficulty w/ Childcare or Family Care: No Living arrangements: with family Additional living arrangements comments: Occupation/Education: other 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 Gender identity (if verbalized by the patient): Female Sexual Orientation (if Verbalized by the Patient): Straight or Heterosexual Spiritual care concerns: No Agree to blood products: No Meds Home Medications and Allergies Home Medications Medication Instructions Recorded Confirmed Type sertraline 50 mg tablet 50 mg PO DAILY #30 tabs 07/15/24 07/15/24 Rx Allergies Allergy/AdvReac Type Severity Reaction Status Date / Time No Known Allergies Allergy Verified 07/15/24 15:22 Exam Const: General: cooperative and healthy appearing Resp: Effort & Inspection: normal respiratory effort Auscultation: clear to auscultation bilaterally Cardio: Rate: regular rate Rhythm: regular rhythm GI: Inspection: normal to inspection Auscultation: normal bowel sounds : External Female Exam: normal external appearance Speculum Exam - Vagina: normal appearance of the vagina Speculum Exam - Cervix: normal appearance of the cervix Bimanual exam- vagina & uterus: enlarged ( 8-10 week size) Bimanual Exam- Adnexa, other: tender ( left adnexa enlarged and tender) Assessment and Plan Assessment and plan (1) Left ovarian cyst: Code(s): N83.202 - Unspecified ovarian cyst, left side Status: Acute (2) Pelvic pain: Code(s): R10.2 - Pelvic and perineal pain Status: Acute Plan proceed with robotic/laparoscopic left salpingo oophorectomy ( patient has had prior salpingectomy but if segment of tube is present this will be removed).
[2024-07-18] VITALS (9 sets, daily range): BP systolic 110–135; BP diastolic 66–83; PULSE 58–93; RESP 14–18; TEMP 36.4–36.7; O2SAT 94–100; BMI 29.2
--- NOTE | 2024-07-18 07:18 | WPDHPUPDATE1 ---
History and Physical Update Update Date/Time: 07/18/24 07:18 History and Physical has been reviewed, including an updated exam of the patient. There are NO changes in the patient's condition. Risks, benefits, and alternatives have been discussed and questions answered. Patient agrees to proceed with procedure.
[2024-07-18] MEDS: LACTATED RINGERS 1,000 ML 30 ML IV CONT ×2 (09:15→11:54)
[2024-07-18] MEDS: ACETAMINOPHEN 500 MG TABLET 1000 MG PO (09:47)
[2024-07-18] MEDS: KETOROLAC 15 MG/ML VIAL (*BKC) IV PUSH (09:47)
--- NOTE | 2024-07-18 10:03 | WPDANESEPPF ---
Anes - Initial Pre Proc Eval Procedure: Operation Date: 07/18/24 10:15 Proposed Procedures p Robotic Assisted Laparoscopic Left Oophorectomy - Clarence Rodrigues MD Date/Time: 07/18/24 10:03 Surgeon: Clarence Rodrigues MD Pre Op Diagnosis: Lt Ovarian Cyst Patient Data Age: 33 Gender: F Height: Weight: Allergies Allergy/AdvReac Type Severity Reaction Status Date / Time No Known Allergies Allergy Verified 07/15/24 15:22 Home Medications Medication Instructions Recorded Confirmed Type sertraline 50 mg tablet 50 mg PO DAILY #30 tabs 07/15/24 07/15/24 Rx Patient hx anesthesia problems: none Family hx anesthesia problems: none Results Review: All pre-operative results and documents have been reviewed as part of the pre-operative evaluation. 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 Gestational diabetes Obesity Suppression of menses Surgical History Surgical History History of delivery Family History Family History Mother No pertinent past medical history Diabetes mellitus Other Hypertension Father Throat cancer Social History Social History Smoking status: Never smoker Second hand tobacco smoke exposure: No Alcohol intake: former Substance use: never Substance use type: does not use Do You Feel Safe in your Home?: Yes Lack of Transportation: No Lack of Food: Never True Current Housing: I Have Housing Concerned About Future Housing: No Difficulty Paying Gas/Electric Bills: No Difficulty Paying for Meds: No Currently Unemployed: No Education: Decline to Answer Difficulty w/ Childcare or Family Care: No Living arrangements: with family Additional living arrangements comments: Occupation/Education: other 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 Gender identity (if verbalized by the patient): Female Sexual Orientation (if Verbalized by the Patient): Straight or Heterosexual Spiritual care concerns: No Agree to blood products: No Anes - Eval Final PreProcedure Day of Procedure 07/18/24 10:03 Patient weight: obese Heart: regular rate and rhythm Lungs: clear to auscultation Airway: Mallampati scale class II Neurological: alert and oriented Last oral intake: >/= 8 hours ASA classification: II Emergent: no Anesthetic plan: proceed Anesthesia type and monitoring: general ETT and standard monitoring Results Review: All pre-operative results and documents have been reviewed as part of the pre-operative evaluation. Pt w obesity, seasonal allergies, OA and chronic back pain. Informed Consent: The patient's anesthetic plan and its attendant risks and benefits were discussed with the patient/family/POA. Questions were solicited and answers provided to the satisfaction of the patient/family/POA.
--- NOTE | 2024-07-18 10:59 | W.PM.PROC2 ---
Procedure Note - Detailed Date of Procedure 07/18/24 Pre-op Diagnosis 1. Lt Ovarian Cyst 2. Left adnexal pain Post-op Diagnosis Same (3. Adhesions) Procedure Performed Robotic assisted laparoscopic: 1. Adhesiolysis 2. Left salpingo oophorectomy Surgeon Clarence Rodrigues MD Anesthesia General Findings Uterus tubes and right ovary without abnormality. Left ovary with 2-3 cm cyst Omental adhesions Description of Procedure Patient prepped draped usual manner for this procedure. Abdominal trocar sites were marked and placed under direct visualization. Adhesions were noted and these were readily taken down using cautery. Attention was then placed to the left adnexa cyst was noted. Endo pelvic ligament was cauterized and cut and the ovary was removed without difficulty through the right upper quadrant incision. There was no bleeding, Jalen was placed empirically. Gas was allowed to escape incisions approximated 4-0 Monocryl the patient sent to recovery room in stable condition. Estimated Blood Loss 10 Drains No Packing No Pathology Yes Complications No immediate complications Condition Stable Disposition PACU [facility] Billing Surgery - Charge Forward: Surgery Billing
[2024-07-18] MEDS: fentaNYL CITRATE INJ (*CRX) 100 MCG/2 ML VIAL 25 MCG IV PUSH ×4 (11:34→11:52)
[2024-07-18] MEDS: oxyCODONE HCL (*CRX) 5 MG TAB IR PO (12:54)
--- NOTE | 2024-07-18 13:35 | SUR.PHASEII ---
Patient vitals are stable. She is waiting for her to pick her up.
== END 2024-07-18 13:37 | disposition home or self-care (01) ==
PROVIDERS: PCP Nurse Practitioner Adult Health; Visit Provider Obstetrics & Gynecology
PROC: 8E0W4CZ Robotic Assisted Procedure of Trunk Region, Percutaneous Endoscopic Approach (ICD-10-PCS; CPT 49320; principal; 2024-07-18 10:15)
DX: N83.202 Unspecified ovarian cyst, left side (principal); K66.0 Peritoneal adhesions (postprocedural) (postinfection); E66.9 Obesity, unspecified; Z68.29 Body mass index [BMI] 29.0-29.9, adult; Z98.890 Other specified postprocedural states; Z80.1 Family history of malignant neoplasm of trachea, bronchus and lung
CPT/HCPCS: 58662; 88305; A9270; J1100; J1885; J2250; J2405; J2704; J3010; J7030; J7120